=== PATIENT | male | born 1950 | race Caucasian/White ===

== ENCOUNTER 2021-08-11 20:28 | Inpatient (IN) ==
[2021-08-11] MEDS ORDERED: ONDANSETRON INJ 2 MG/ML 2 ML VIAL IV STA (20:54)
[2021-08-11] MEDS ORDERED: LORazepam 2 MG/1 ML VIAL IV STA (20:54)
[2021-08-11] MEDS ORDERED: ONDANSETRON INJ 2 MG/ML 2 ML VIAL ONE (20:54)
[2021-08-11] MEDS ORDERED: SODIUM CHLORIDE 0.9% 1000ML 1,000 ML IV ONE (20:54)
[2021-08-11] MEDS ORDERED: LORazepam 2 MG/1 ML VIAL ONE (20:54)
--- NOTE | 2021-08-11 21:00 | Emergency Department Note ---
Impression & Plan Acute confusion, Leukocytosis, Vertebral artery obstruction ED Provider Note NAME: CHETNA DORMAN AGE: 71 SEX: M : 1950 ARRIVES VIA: Walk-In INFORMANT: [Patient][] ED PROVIDER(S): [Raman Lund MD] Patient first seen by me at 2049 CHIEF COMPLAINT: Confusion HISTORY OF PRESENT ILLNESS: The patient is a 71-year-old male who presents to the ER with confusion that has been present for about an hour and a half. The patient had an episode yesterday that his thought might have been panic. He was sweaty with a high heart rate and she thought he may just be anxious. His [id number] just recently . Today, he had 2 similar episodes as yesterday but also had some nausea. In the last hour and a half, he has become confused and a bit agitated. He began vomiting. The patient did not know his son, he did not remember that his [id number] had passed recently. The patient keeps asking the same questions over and over. As per the , there was no one-sided weakness, no speech slur or facial droop. She believes her has otherwise been in baseline health. No respiratory complaints. No recent sick contacts. REVIEW OF SYSTEMS: See HPI for pertinent positives and negatives. A total of ten systems were reviewed and were otherwise negative. PMHx/PSHx: See Below SOCIAL HISTORY: See Below. PHYSICAL EXAM: GENERAL: Patient is in mild distress, seems anxious. HEENT: No acute trauma, normocephalic atraumatic, mucous membranes moist, no nasal congestion, no scleral icterus. Pupils equal and reactive to light. NECK: No stridor, no adenopathy, no meningismus, trachea is midline. LUNGS: Clear to auscultation bilaterally, no wheeze, no rhonchi, breath sounds equal. HEART: Mildly tachycardic, regular rhythm, no murmurs. ABDOMEN: Soft, nontender, bowel sounds positive, no peritonitis. EXTREMITIES: No cyanosis or edema, full range of motion of all the joints without pain or difficulty, no signs for acute trauma. NEUROLOGIC: Patient is confused. There are no extremity deficits , there is no extremity drift. No speech slur or facial droop. Patient continues asking the same questions over and over again. SKIN: No rash, no jaundice, no diaphoresis. DIFFERENTIAL DIAGNOSIS: Infection, dehydration, UTI, transient global amnesia, anxiety, panic, metabolic abnormality, hypo/hyperglycemia, electrolyte disturbance, anemia, hypoxia, cardiac sources, intracerebral event, toxicologic issues, stroke, TIA, as well as other pathologies. EMERGENCY DEPARTMENT COURSE/PROCEDURES: ECG: Indication was weakness and confusion. The ECG shows a normal sinus rhythm with a rate of 91. There is some nonspecific ST change seen laterally and across the anterior leads. There is no ST elevation, no PVCs. QTC is 460. Compared to an ECG from 29 April 2021, the nonspecific changes seen across the anterior lateral leads are new. Continuous Cardiac Monitoring: An order was placed for continuous cardiac monitoring. The monitor shows a rate of 81 with normal sinus rhythm. Critical Care Note: I have personally spent 51 minutes of critical care time in the direct management of this patient. This includes bedside care, interpretation of diagnostic studies, and testing, discussion with consultants, patient, and family members, and other required patient management activities. This 51 minutes is in excess of all separately billable procedures. Lumbar puncture: This procedure was performed by me. Risks and benefits of the procedure were discussed. Patient was placed seated on the stretcher. Lumbar landmarks were identified. Betadine was used for prep. Sterile drapes were applied. Using sterile technique, lidocaine was used to anesthetize the lumbar area. Using sterile technique, I was able to access the spinal canal with a 22- gauge spinal needle. There were no complications. Fluid was collected for analysis and sent to the lab. Patient tolerated the procedure well. MEDICAL DECISION MAKING: There is a mild leukocytosis which could be consistent with infection or the stress of his presentation and vomiting. There is a normal hemoglobin. There is a normal platelet count. No significant electrolyte abnormality in need of emergent correction. No concerning liver enzyme elevation. Ammonia level was not elevated. ECG showed a normal sinus rhythm, no obvious ischemia. Cardiac enzyme testing x1 is not consistent with acute cardiac injury. The patient appeared to be in a euthyroid state. Urinalysis did not show infection. Spinal fluid results did not show evidence for meningitis. His CSF bio fire test is cu rrently pending. Urine tox was positive for marijuana. Alcohol level was undetectable. COVID test returned negative. Chest x-ray did not show CHF or pneumonia. Brain CT showed no acute bleed or mass-effect. CTA of the head did not show any aneurysm or stenosis. 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 On exam, the patient was confused, no speech slur, no extremity deficit. No facial droop. The patient was not febrile, there was no meningismus. The patient received IV saline, 1 L. He was given IV Zofran and IV Ativan. When the findings of the vertebral occlusion were noted, I did call a stroke alert and was able to talk to the stroke neurologist from [place]. TNKase is not indicated as his symptom started yesterday. TNKase was not indicated as his deficit is minimal. At this point, it is uncertain if this is a stroke, a seizure or transient global amnesia. The patient seems to be doing a bit better although still remains at times confused. He is having issues with his memory. I did speak with the patient about my findings, I spoke with his . I did speak with the shelter case manager. The on-call hospitalist has been consulted. At the advice of the stroke neurologist, the patient was given oral aspirin, 325 mg. Patient requires further work-up and care as an inpatient. Of note, I was asked by the hospitalist to perform a lumbar puncture. I spoke to the patient and his about this procedure, they did consent and they understand the risks, the benefits and the reason for the procedure. As noted above, the lumbar puncture was performed without difficulty, the preliminary results do not show evidence for meningitis. Past Med/Surg History Medical History Hyperlipidemia Hypertension Non-insulin dependent diabetes mellitus Social History Smoking Status: Never smoker Preferred Language: Bulgarian Feels Safe at Home: Yes Allergies Allergies Allergy/AdvReac Type Severity Reaction Status Date / Time No Known Allergies Allergy Verified 08/11/21 21:23 Home Meds Home Medications Medication Instructions Recorded Confirmed atorvastatin 40 mg tablet 20 mg PO HS 06/07/19 08/11/21 losartan 100 1 tab PO QAM 06/07/19 08/11/21 mg-hydrochlorothiazide 25 mg tablet metformin 500 mg tablet,extended 500 mg PO QAM 06/07/19 08/11/21 release 24 hr pantoprazole 40 mg tablet,delayed 40 mg PO DAILYBB 06/07/19 08/11/21 release sildenafil 100 mg tablet 100 mg PO DAILY PRN 06/07/19 08/11/21 amlodipine 5 mg tablet 5 mg PO DAILY 08/11/21 08/11/21 metoprolol tartrate 25 mg tablet 12.5 mg PO BID 08/11/21 08/11/21 Results & Data (ED) Vital Signs Vital Signs - 24 hr 08/11/21 20:39 08/11/21 20:56 08/11/21 22:09 Temperature 36.3 C L Temperature Source Temporal Artery Scan Pulse Rate 81 78 Pulse Rate from SpO2 Sensor 78 Respiratory Rate 16 21 Respiratory Effort / Characteristics Non-Labored Spontaneous Respiratory Depth Normal Blood Pressure 173/95 H Blood Pressure Mean 121 Blood Pressure Position Standing Pulse Oximetry 99 98 99 Oxygen Delivery Method Room Air Room Air Sepsis Recent Fever Within 48 Hours No Sepsis New/Unexplained Change in Mental Status No Sepsis Action Taken by Nursing No Action Required 08/11/21 22:10 08/11/21 22:20 08/11/21 22:22 Temperature Temperature Source Pulse Rate 89 81 77 Pulse Rate from SpO2 Sensor 88 80 70 Respiratory Rate 28 H 20 17 Respiratory Effort / Characteristics Respiratory Depth Blood Pressure 142/82 H Blood Pressure Mean 102 Blood Pressure Position Pulse Oximetry 100 99 97 Oxygen Delivery Method Sepsis Recent Fever Within 48 Hours Sepsis New/Unexplained Change in Mental Status Sepsis Action Taken by Nursing 08/11/21 22:30 08/11/21 22:40 08/11/21 22:50 Temperature Temperature Source Pulse Rate 82 81 77 Pulse Rate from SpO2 Sensor 82 81 78 Respiratory Rate 24 18 18 Respiratory Effort / Characteristics Respiratory Depth Blood Pressure 148/81 H Blood Pressure Mean 103 Blood Pressure Position Pulse Oximetry 97 98 97 Oxygen Delivery Method Sepsis Recent Fever Within 48 Hours Sepsis New/Unexplained Change in Mental Status Sepsis Action Taken by Nursing 08/11/21 23:00 08/11/21 23:10 Temperature Temperature Source Pulse Rate 80 78 Pulse Rate from SpO2 Sensor 81 78 Respiratory Rate 21 20 Respiratory Effort / Characteristics Non-Labored Respiratory Depth Normal Blood Pressure 154/82 H Blood Pressure Mean 106 Blood Pressure Position Pulse Oximetry 98 92 Oxygen Delivery Method Room Air Sepsis Recent Fever Within 48 Hours Sepsis New/Unexplained Change in Mental Status Sepsis Action Taken by Snf Medications Current Medication List: was personally reviewed by me Laboratory Data Attestation: I reviewed the patient's lab results. Result diagrams: 08/11/21 20:55 08/11/21 20:55 Lab Results 08/11/21 08/11/21 08/11/21 Range/Units 20:48 20:55 20:55 WBC 13.10 H (4.8-10.8) K/uL RBC 5.57 (4.7-6.1) M/uL Hgb 16.3 (14.0-18.0) g/dL POC Hgb (14.0-18.0) g/dl Hct 45.3 (42-52) % POC Hct (42-52) % MCV 81.3 (80-100) fL MCH 29.3 (25-34) pg MCHC 36.0 (32-36) g/dL RDW Std Deviation 36.3 L (36.4-46.3) fL RDW Coeff of Alyson 12.3 (11.5-14.5) % Plt Count 315 (130-400) K/uL MPV 11.0 H (7.4-10.4) fL Immature Gran % (Auto) 0.2 % Neut % (Auto) 83.8 % Lymph % (Auto) 12.1 % Logan % (Auto) 3.7 % Eos % (Auto) 0.1 % Baso % (Auto) 0.1 % Neut # (Auto) 10.98 H (1.4-6.5) K/uL Lymph # (Auto) 1.58 (1.2-3.4) K/uL Logan # (Auto) 0.49 (0.11-0.59) K/uL Eos # (Auto) 0.01 (0-0.5) K/uL Baso # (Auto) 0.01 (0-0.2) K/uL Immature Gran # (Auto) 0.03 H (0.00-0.02) K/uL POC Sodium (135-144) mmol/L Sodium 135 L (136-145) mmol/L POC Potassium (3.3-5.0) mmol/L Potassium 3.9 (3.5-5.1) mmol/L POC Chloride (101-112) mmol/L Chloride 100 (98-107) mmol/L Carbon Dioxide 21 (21-32) mmol/L POC Total CO2 (24-31) mmol/L Anion Gap 14 H (3-11) POC Anion Gap (16-25) mmol/L POC BUN (7-18) mg/dl BUN 23 (6-23) mg/dl Creatinine 1.19 (0.6-1.4) mg/dl POC Creatinine (0.6-1.3) mg/dl Est Cr Clr Drug Dosing 61.4 ml/min Est GFR ( Amer) 70.8 ml/min Est GFR (Non-Af Amer) 61.1 ml/min BUN/Creatinine Ratio 19.3 (10-20) Glucose 185 H (70-99(Fasting)) mg/dl POC Glucose 201 H (70-99) mg/dl POC Glucose (other) (70-99) mg/dl Calcium 10.3 H (8.5-10.1) mg/dl POC Ioniz Calcium Phillip (1.12-1.32) mmol/l Magnesium 1.9 (1.7-2.4) mg/dl Total Bilirubin 1.4 H (0.2-1.0) mg/dl AST 20 (13-39) U/L ALT 32 (7-52) U/L Alkaline Phosphatase 75 (34-104) U/L Ammonia (18-72) umol/L Troponin I High Sens 11.3 (0-20) pg/ml Total Protein 8.5 H (6.0-8.3) gm/dl Albumin 5.0 (3.4-5.0) gm/dl Globulin 3.5 (2.5-4.0) gm/dl Albumin/Globulin Ratio 1.4 (0.9-2) TSH (0.300-4.500) uIu/ml Urine Color Urine Appearance (Clear) Urine pH (4.5-7.5) Ur Specific [employer] (1.000-1.030) Urine Protein (Negative) Urine Glucose (UA) (Negative) Urine Ketones (Negative) Urine Blood (Negative) Urine Nitrite (Negative) Urine Bilirubin (Negative) Urine Urobilinogen (Negative) Ur Leukocyte Esterase (Negative) Urine Opiates Screen (Neg) Ur Methadone, Qual (Neg) Urine Barbiturates (Neg) Ur Phencyclidine (PCP) (Neg) U Amphetamin/Meth Scrn (Neg) MDMA (Ecstasy) Screen (Neg) U Benzodiazepines Scrn (Neg) Ur Cocaine Metabolite (Neg) U Marijuana (THC) Screen (Neg) Ethyl Alcohol mg/dL (<10.0) mg/dl Lyme Disease IgG Ab (Negative) Lyme Disease IgM Ab (Negative) SARS-CoV-2, RNA, NAAT (NEGATIVE) 08/11/21 08/11/21 08/11/21 Range/Units 20:55 20:55 20:58 WBC (4.8-10.8) K/uL RBC (4.7-6.1) M/uL Hgb (14.0-18.0) g/dL POC Hgb 16.0 (14.0-18.0) g/dl Hct (42-52) % POC Hct 47 (42-52) % MCV (80-100) fL MCH (25-34) pg MCHC (32-36) g/dL RDW Std Deviation (36.4-46.3) fL RDW Coeff of Alyson (11.5-14.5) % Plt Count (130-400) K/uL MPV (7.4-10.4) fL Immature Gran % (Auto) % Neut % (Auto) % Lymph % (Auto) % Logan % (Auto) % Eos % (Auto) % Baso % (Auto) % Neut # (Auto) (1.4-6.5) K/uL Lymph # (Auto) (1.2-3.4) K/uL Logan # (Auto) (0.11-0.59) K/uL Eos # (Auto) (0-0.5) K/uL Baso # (Auto) (0-0.2) K/uL Immature Gran # (Auto) (0.00-0.02) K/uL POC Sodium 137 (135-144) mmol/L Sodium (136-145) mmol/L POC Potassium 3.9 (3.3-5.0) mmol/L Potassium (3.5-5.1) mmol/L POC Chloride 101 (101-112) mmol/L Chloride (98-107) mmol/L Carbon Dioxide (21-32) mmol/L POC Total CO2 21 L (24-31) mmol/L Anion Gap (3-11) POC Anion Gap 20.0 (16-25) mmol/L POC BUN 21 H (7-18) mg/dl BUN (6-23) mg/dl Creatinine (0.6-1.4) mg/dl POC Creatinine 1.1 (0.6-1.3) mg/dl Est Cr Clr Drug Dosing ml/min Est GFR ( Amer) ml/min Est GFR (Non-Af Amer) ml/min BUN/Creatinine Ratio (10-20) Glucose (70-99(Fasting)) mg/dl POC Glucose (70-99) mg/dl POC Glucose (other) 195 H (70-99) mg/dl Calcium (8.5-10.1) mg/dl POC Ioniz Calcium Phillip 1.21 (1.12-1.32) mmol/l Magnesium (1.7-2.4) mg/dl Total Bilirubin (0.2-1.0) mg/dl AST (13-39) U/L ALT (7-52) U/L Alkaline Phosphatase (34-104) U/L Ammonia (18-72) umol/L Troponin I High Sens (0-20) pg/ml Total Protein (6.0-8.3) gm/dl Albumin (3.4-5.0) gm/dl Globulin (2.5-4.0) gm/dl Albumin/Globulin Ratio (0.9-2) TSH 3.083 (0.300-4.500) uIu/ml Urine Color Urine Appearance (Clear) Urine pH (4.5-7.5) Ur Specific [employer] (1.000-1.030) Urine Protein (Negative) Urine Glucose (UA) (Negative) Urine Ketones (Negative) Urine Blood (Negative) Urine Nitrite (Negative) Urine Bilirubin (Negative) Urine Urobilinogen (Negative) Ur Leukocyte Esterase (Negative) Urine Opiates Screen (Neg) Ur Methadone, Qual (Neg) Urine Barbiturates (Neg) Ur Phencyclidine (PCP) (Neg) U Amphetamin/Meth Scrn (Neg) MDMA (Ecstasy) Screen (Neg) U Benzodiazepines Scrn (Neg) Ur Cocaine Metabolite (Neg) U Marijuana (THC) Screen (Neg) Ethyl Alcohol mg/dL (<10.0) mg/dl Lyme Disease IgG Ab Negative (Negative) Lyme Disease IgM Ab Equivocal A (Negative) SARS-CoV-2, RNA, NAAT (NEGATIVE) 06/04/0308/11/21 08/11/21 Range/Units 21:35 21:35 22:27 WBC (4.8-10.8) K/uL RBC (4.7-6.1) M/uL Hgb (14.0-18.0) g/dL POC Hgb (14.0-18.0) g/dl Hct (42-52) % POC Hct (42-52) % MCV (80-100) fL MCH (25-34) pg MCHC (32-36) g/dL RDW Std Deviation (36.4-46.3) fL RDW Coeff of Alyson (11.5-14.5) % Plt Count (130-400) K/uL MPV (7.4-10.4) fL Immature Gran % (Auto) % Neut % (Auto) % Lymph % (Auto) % Logan % (Auto) % Eos % (Auto) % Baso % (Auto) % Neut # (Auto) (1.4-6.5) K/uL Lymph # (Auto) (1.2-3.4) K/uL Logan # (Auto) (0.11-0.59) K/uL Eos # (Auto) (0-0.5) K/uL Baso # (Auto) (0-0.2) K/uL Immature Gran # (Auto) (0.00-0.02) K/uL POC Sodium (135-144) mmol/L Sodium (136-145) mmol/L POC Potassium (3.3-5.0) mmol/L Potassium (3.5-5.1) mmol/L POC Chloride (101-112) mmol/L Chloride (98-107) mmol/L Carbon Dioxide (21-32) mmol/L POC Total CO2 (24-31) mmol/L Anion Gap (3-11) POC Anion Gap (16-25) mmol/L POC BUN (7-18) mg/dl BUN (6-23) mg/dl Creatinine (0.6-1.4) mg/dl POC Creatinine (0.6-1.3) mg/dl Est Cr Clr Drug Dosing ml/min Est GFR ( Amer) ml/min Est GFR (Non-Af Amer) ml/min BUN/Creatinine Ratio (10-20) Glucose (70-99(Fasting)) mg/dl POC Glucose (70-99) mg/dl POC Glucose (other) (70-99) mg/dl Calcium (8.5-10.1) mg/dl POC Ioniz Calcium Phillip (1.12-1.32) mmol/l Magnesium (1.7-2.4) mg/dl Total Bilirubin (0.2-1.0) mg/dl AST (13-39) U/L ALT (7-52) U/L Alkaline Phosphatase (34-104) U/L Ammonia 28.0 (18-72) umol/L Troponin I High Sens (0-20) pg/ml Total Protein (6.0-8.3) gm/dl Albumin (3.4-5.0) gm/dl Globulin (2.5-4.0) gm/dl Albumin/Globulin Ratio (0.9-2) TSH (0.300-4.500) uIu/ml Urine Color Yellow Urine Appearance Clear (Clear) Urine pH 5.5 (4.5-7.5) Ur Specific [employer] > 1.045 H (1.000-1.030) Urine Protein Negative (Negative) Urine Glucose (UA) Negative (Negative) Urine Ketones Trace H (Negative) Urine Blood Negative (Negative) Urine Nitrite Negative (Negative) Urine Bilirubin Negative (Negative) Urine Urobilinogen Negative (Negative) Ur Leukocyte Esterase Negative (Negative) Urine Opiates Screen (Neg) Ur Methadone, Qual (Neg) Urine Barbiturates (Neg) Ur Phencyclidine (PCP) (Neg) U Amphetamin/Meth Scrn (Neg) MDMA (Ecstasy) Screen (Neg) U Benzodiazepines Scrn (Neg) Ur Cocaine Metabolite (Neg) U Marijuana (THC) Screen (Neg) Ethyl Alcohol mg/dL < 10.0 (<10.0) mg/dl Lyme Disease IgG Ab (Negative) Lyme Disease IgM Ab (Negative) SARS-CoV-2, RNA, NAAT (NEGATIVE) 08/11/21 08/11/21 Range/Units 22:27 22:45 WBC (4.8-10.8) K/uL RBC (4.7-6.1) M/uL Hgb (14.0-18.0) g/dL POC Hgb (14.0-18.0) g/dl Hct (42-52) % POC Hct (42-52) % MCV (80-100) fL MCH (25-34) pg MCHC (32-36) g/dL RDW Std Deviation (36.4-46.3) fL RDW Coeff of Alyson (11.5-14.5) % Plt Count (130-400) K/uL MPV (7.4-10.4) fL Immature Gran % (Auto) % Neut % (Auto) % Lymph % (Auto) % Logan % (Auto) % Eos % (Auto) % Baso % (Auto) % Neut # (Auto) (1.4-6.5) K/uL Lymph # (Auto) (1.2-3.4) K/uL Logan # (Auto) (0.11-0.59) K/uL Eos # (Auto) (0-0.5) K/uL Baso # (Auto) (0-0.2) K/uL Immature Gran # (Auto) (0.00-0.02) K/uL POC Sodium (135-144) mmol/L Sodium (136-145) mmol/L POC Potassium (3.3-5.0) mmol/L Potassium (3.5-5.1) mmol/L POC Chloride (101-112) mmol/L Chloride (98-107) mmol/L Carbon Dioxide (21-32) mmol/L POC Total CO2 (24-31) mmol/L Anion Gap (3-11) POC Anion Gap (16-25) mmol/L POC BUN (7-18) mg/dl BUN (6-23) mg/dl Creatinine (0.6-1.4) mg/dl POC Creatinine (0.6-1.3) mg/dl Est Cr Clr Drug Dosing ml/min Est GFR ( Amer) ml/min Est GFR (Non-Af Amer) ml/min BUN/Creatinine Ratio (10-20) Glucose (70-99(Fasting)) mg/dl POC Glucose (70-99) mg/dl POC Glucose (other) (70-99) mg/dl Calcium (8.5-10.1) mg/dl POC Ioniz Calcium Phillip (1.12-1.32) mmol/l Magnesium (1.7-2.4) mg/dl Total Bilirubin (0.2-1.0) mg/dl AST (13-39) U/L ALT (7-52) U/L Alkaline Phosphatase (34-104) U/L Ammonia (18-72) umol/L Troponin I High Sens (0-20) pg/ml Total Protein (6.0-8.3) gm/dl Albumin (3.4-5.0) gm/dl Globulin (2.5-4.0) gm/dl Albumin/Globulin Ratio (0.9-2) TSH (0.300-4.500) uIu/ml Urine Color Urine Appearance (Clear) Urine pH (4.5-7.5) Ur Specific [employer] (1.000-1.030) Urine Protein (Negative) Urine Glucose (UA) (Negative) Urine Ketones (Negative) Urine Blood (Negative) Urine Nitrite (Negative) Urine Bilirubin (Negative) Urine Urobilinogen (Negative) Ur Leukocyte Esterase (Negative) Urine Opiates Screen Neg (Neg) Ur Methadone, Qual Neg (Neg) Urine Barbiturates Neg (Neg) Ur Phencyclidine (PCP) Neg (Neg) U Amphetamin/Meth Scrn Neg (Neg) MDMA (Ecstasy) Screen Neg (Neg) U Benzodiazepines Scrn Neg (Neg) Ur Cocaine Metabolite Neg (Neg) U Marijuana (THC) Screen Pos H (Neg) Ethyl Alcohol mg/dL (<10.0) mg/dl Lyme Disease IgG Ab (Negative) Lyme Disease IgM Ab (Negative) SARS-CoV-2, RNA, NAAT NEGATIVE (NEGATIVE) Administered Medications Lactated Ringer's (Lr) 1,000 mls @ 80 mls/hr IV .[id number] JORGE Stop: 09/10/21 23:54 Last Admin: 08/12/21 00:10 Dose: 80 mls/hr Documented by: [id number] Insulin Aspart (Insulin Aspart Per Unit) 0 units SC Q6 JORGE Stop: 09/11/21 00:59 Last Admin: 08/12/21 01:38 Dose: 1 units Documented by: [id number] Cosigned by: [id number] Discontinued Medications Aspirin (Aspirin Chew 324 Mg) 324 mg PO NOW STA Stop: 08/11/21 22:14 Last Admin: 08/11/21 22:53 Dose: 324 mg Documented by: [id number] Sodium Chloride (Nss 1000ml) 1,000 mls @ 999 mls/hr IV .[id number] ONE Stop: 08/11/21 21:54 Last Infusion: 08/11/21 22:47 Dose: 0 mls/hr Documented by: [id number] Admin: 08/11/21 21:45 Dose: 999 mls/hr Documented by: [id number] Ioversol (Optiray 320 125ml) 121 ml IV ONCE ONE Stop: 08/11/21 21:09 Last Admin: 08/11/21 21:09 Dose: 121 ml Documented by: [id number] Lidocaine HCl (Xylocaine 1%/Sod Bicarb 20 Ml Vial) 20 ml INFIL NOW ONE Stop: 08/12/21 00:13 Last Admin: 08/12/21 00:22 Dose: 20 ml Documented by: [id number] Lorazepam (Lorazepam 2 Mg/1 Ml Vial) Confirm Administered Dose 2 mg .ROUTE .STK- MED ONE Stop: 08/11/21 20:55 Last Admin: 08/11/21 21:47 Dose: Not Given Documented by: [id number] Lorazepam (Lorazepam 2 Mg/1 Ml Vial) 0.5 mg IV NOW STA; Protocol Stop: 08/11/21 20:55 Last Admin: 08/11/21 21:45 Dose: 0.5 mg Documented by: [id number] Ondansetron HCl (Ondansetron Inj 2 Mg/Ml 2 Ml Vial) Confirm Administered Dose 4 mg .ROUTE .STK-MED ONE Stop: 08/11/21 20:55 Last Admin: 08/11/21 21:45 Dose: 4 mg Documented by: [id number] Ondansetron HCl (Ondansetron Inj 2 Mg/Ml 2 Ml Vial) 4 mg IV NOW STA Stop: 08/11/21 20:55 Last Admin: 08/11/21 21:47 Dose: Not Given Documented by: [id number] Imaging Data Radiologist's Impression: Brain CT without contrast: There is no evidence for acute intracranial process. Mild mucosal thickening of the ethmoid air cells. CTA of the head: Severe attenuation of the proximal intracranial left vertebral artery. Right vertebral artery, basilar artery and bilateral fence erector supervisor are adequate and patent. Intracranial ICAs are adequate and patent. MCAs are patent. 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 Right vertebral artery is normal. Carotid arteries are normal. Discharge Plan Visit Data Chief Complaint: Confusion Stated Complaint: CONFUSION ED Provider: Raman Lund Discharge Problem: Acute confusion, Leukocytosis, Vertebral artery obstruction Patient Disposition: Admitted As Inpatient Condition: Fair
[2021-08-11] MEDS ORDERED: OPTIRAY 320 125ml IV ONE (21:08)
[2021-08-11 21:11] LABS: iSTAT Creatinine 1.1 mg/dl (0.6-1.3); iSTAT Ionized Calcium 1.21 mmol/l (1.12-1.32); iSTAT Potassium 3.9 mmol/L (3.3-5.0)
[2021-08-11 21:23] LABS: Basophils # (auto) 0.01 K/uL (0-0.2); Basophils % (auto) 0.1 %; Eosinophils # (auto) 0.01 K/uL (0-0.5); Eosinophils % (auto) 0.1 %; Hematocrit (blood only) 45.3 % (42-52); Hemoglobin 16.3 g/dL (14.0-18.0); Immature Granulocytes # (auto) 0.03 K/uL (0.00-0.02); Immature Granulocytes % (auto) 0.2 %; Lymphocytes # (auto) 1.58 K/uL (1.2-3.4); Lymphocytes % (auto) 12.1 %; Mean Corpuscular Hemoglobin 29.3 pg (25-34); Mean Corpuscular Volume 81.3 fL (80-100); Monocytes # (auto) 0.49 K/uL (0.11-0.59); Monocytes % (auto) 3.7 %; Neutrophils # (auto) 10.98 K/uL (1.4-6.5); Neutrophils % (auto) 83.8 %; Platelet Count 315 K/uL (130-400); RDW Coefficient of Variation 12.3 % (11.5-14.5); RDW Standard Deviation 36.3 fL (36.4-46.3); Red Blood Count 5.57 M/uL (4.7-6.1)
[2021-08-11 21:38] LABS: Troponin I High Sensitivity 11.3 pg/ml (0-20)
[2021-08-11 21:59] LABS: Albumin Globulin Ratio 1.4 (0.9-2); BUN Creatinine Ratio 19.3 (10-20); Bilirubin,Total 1.4 mg/dl (0.2-1.0); Calcium 10.3 mg/dl (8.5-10.1); Creatinine Clr Calc Pharmacy 61.4 ml/min; Est GFR (African American) 70.8 ml/min; Est GFR (Non-African American) 61.1 ml/min; Globulin 3.5 gm/dl (2.5-4.0); Magnesium 1.9 mg/dl (1.7-2.4); Potassium 3.9 mmol/L (3.5-5.1); Total Protein 8.5 gm/dl (6.0-8.3)
[2021-08-11] MEDS ORDERED: ASPIRIN CHEW 324 MG PO STA (22:13)
[2021-08-11 22:40] LABS: Appearance Urine Clear (Clear); Bilirubin Urine Negative (Negative); Blood Urine Negative (Negative); Color Urine Yellow; Glucose Urine UA Negative (Negative); Ketones Urine Trace (Negative); Leukocyte Esterase Urine Negative (Negative); Nitrite Urine Negative (Negative); Protein Urine Negative (Negative); Specific Gravity Urine > 1.045 (1.000-1.030); Urobilinogen Urine Negative (Negative); pH Urine 5.5 (4.5-7.5)
--- NOTE | 2021-08-11 23:10 | History & Physical Report ---
Date of Service August 11, 2021 Assessment & Plan (1) Acute confusion: Plan: Parker Gorman is a 71yo male with PMHx significant for HTN, HLD, T2DM and GERD who presented to [facility] ED on 08/11 for acute-onset confusion and amnesia for the last several hours, with reported fever/chills/weakness/malaise for several days. Acute Confusion/Amnesia Unclear etiology at this point in time. When considering the recent episodes of anxiety/palpitations/diaphoresis in the context of a life stressor (loss of ncajoc-jx-qoh), with acute-onset amnesia earlier this evening, transient global amnesia is certainly on the differential. However per CTA head/neck here, the patient has occlusion of left vertebral artery which makes acute CVA a possibility as well. Additionally, there is concern for PROPERTY INSURANCE AGENT infection given recent fever/chills/weakness/malaise as well as mild leukocytosis and positive jolt accentuation test on exam. - CT head and CTA head/neck without evidence for CVA - ordered MRI w/o contrast for further evaluation - ordered TTE - ordered EEG as well per [facility] Telestroke recs - consulted Neurology - appreciate recs - s/p Aspirin 324mg x1 in ED - continue with 81mg PO daily started in AM - ordered lipid profile - will plan to increase home Atorvastatin to 40mg vs 80mg pending results of this - permissive HTN given concern for CVA - will hold home anti-hypertensives for now - NPO pending dysphagia screen - infectious work-up as mentioned below Fever; Meningismus; Leukocytosis Fever/chills and generalized weakness/malaise for several days. Thankfully afebrile and hemodynamically stable in the ED although with meningismus (+ jolt accentuation) and leukocytosis with neutrophilic predominance and left shift. Given acute amnesia/confusion, this is concerning for PROPERTY INSURANCE AGENT infection. - Lyme IgG negative but IgM equivocal - Western blot pending - blood cx taken - pending - LP performed by ED physician, with reported clear CSF - will defer on steroids and abx until LP cell counts result, as patient is currently afebrile, hemodynamically stable, and appears non-toxic - s/p 1L NSS bolus - will continue with light IV hydration: LR @80cc/hr - trend CBC and CMP in AM Chronic Medical Problems: HTN: hold home Amlodipine, Losartan-HCTZ, Metoprolol as stated above T2DM: unknown previous A1c, will order one now. Hold home Metformin, SSI while hospitalized GERD: Pantoprazole PTSD: chronic, no medications. Recommend therapy as outpatient - per PCP FEN/GI: NPO, LR @80cc/hr DVT Prophylaxis: Lovenox Code Status: full code Disposition: med/tele (2) Vertebral artery obstruction: (3) Leukocytosis: (4) Hypertension: (5) Hyperlipidemia: (6) Non-insulin dependent diabetes mellitus: History of Present Illness Chief Complaint: confusion Primary Care Provider: NO PCP Parker Gorman is a 71yo male with PMHx significant for HTN, HLD, T2DM and GERD who presented to [facility] ED on 08/11 for acute-onset confusion and amnesia for the last several hours. The patient's history has been obtained with assistance of the patient's , as the patient reports being "fuzzy" on all events that have occurred in the past week. Per the patient and his 's testimony, the patient had an anxiety episode yesterday that thought may have been a panic attack; he became sweaty with palpitations, which resolved in less than an hour. Of note the patient's rzdpja-zc-tgc had recently . Today the patient had two similar episodes except with associated nausea and with amnesia - he reported that he did not know his son and that he did not remember that his znybzp-gd-pht had recently . Per patient and his , he did not have speech deficits, facial droop or focal weakness/numbness/tingling. Patient and his do report that he has had intermittent fever/chills, unmeasured, for the last several days, with associated generalized weakness and lethargy. He spends a lot of time in his garden and reports that he recently had two bug bites on his arms and pulled out the "pincer" from one of the bite sites earlier today, although unsure if this was a tick. Patient has otherwise been at baseline health status without cough, runny nose, chest pain, SOB, N/V, abdominal pain, diarrhea or rash. Patient reports that he has been diagnosed with PTSD in the past although never on medications, due to his service in [place]. Reports that he regularly had hypersensitivity to certain sounds and smells ~30 years ago, with associated palpitations/sweating/anxiety, but this went away. Then he started having the same episodes again ~3-4 weeks ago which lasted for several days and went away. Unlike above symptoms, these symptoms did not coincide with a life stressor or illness. Patient is a never smoker, does not drink. He does use medical marijuana for peripheral neuropathy but no other drugs. In the ED the patient was hypertensive to 173/95 but otherwise hemodynamically stable on room air. Labs significant for WBC 13.1 (neutrophilic predominance and mild L shift), HCO3 21, AG 14, no ALEXEI. BSG was 201. Tbili 1.4. TSH 3.083. UA concentrated with trace ketones. UDS negative and BAL negative. CT head without acute process. 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 Stroke alert was called and [facility] Telestroke Neurologist recommended patient be given full Aspirin, which he received in the ED. Patient also received 1L NSS bolus, Zofran x1, and Ativan 0.5mg IV x1. Allergies Allergy/AdvReac Type Severity Reaction Status Date / Time No Known Allergies Allergy Verified 08/11/21 21:23 Home Medications Medication Instructions Recorded Confirmed Type atorvastatin 40 mg tablet 20 mg PO HS 06/07/19 08/11/21 History losartan 100 1 tab PO QAM 06/07/19 08/11/21 History mg-hydrochlorothiazide 25 mg tablet metformin 500 mg tablet,extended 500 mg PO QAM 06/07/19 08/11/21 History release 24 hr pantoprazole 40 mg tablet,delayed 40 mg PO DAILYBB 06/07/19 08/11/21 History release sildenafil 100 mg tablet 100 mg PO DAILY PRN 06/07/19 08/11/21 History amlodipine 5 mg tablet 5 mg PO DAILY 08/11/21 08/11/21 History metoprolol tartrate 25 mg tablet 12.5 mg PO BID 08/11/21 08/11/21 History aspirin 81 mg tablet,delayed 81 mg PO DAILY #14 tab 08/12/21 Rx release lorazepam 0.5 mg tablet 0.5 mg PO DAILY PRN #5 tab 08/12/21 Rx Past Med/Surg History Medical History (Updated 08/12/21 @ 09:32 by Arsenio Bates MD) Hyperlipidemia Hypertension Non-insulin dependent diabetes mellitus Social History Smoking Status: Never smoker Hx Alcohol Use: No Hx Substance Use: Yes Preferred Language: Ukrainian Communication Ability: Effective Full Time Paramedic Required: No Beliefs That Will Affect Care: None Current Living Situation: Spouse and Family Current Living Situation Comment: lives at home and son Feels Safe at Home: Yes Assistive Devices: None Review of Systems Review of Systems: All systems reviewed & are unremarkable except as noted in HPI & below Physical Exam Physical Exam: General: A&Ox3. NAD. Cooperative. HEENT: Atraumatic, normocephalic. Pulm: CTAB A&P. -wheezes, -rales, -rhonchi. Symmetrical chest rise. No increase work of breathing. No respiratory distress. Cardiac: RRR, -mrg. Radial pulses intact and symmetrical. Abdominal: soft, non-tender, non-distended, BS x 4 Neurologic: patellar DTR's 2+ bilat, sensation intact and PERRL, EOMI, accommodation nl, no face palsy, no dysarthria normal touch/pain/proprioception Speech / Cognition: normal speech Motor/Sensory: no tremor Gait: no ataxic gait Coordination: normal tkodvh-qt-nkre test and normal cnvo-tn-yacg test positive jolt accentuation testing - patient reports worsening headache and neck pain. Results & Data Results & Data ([facility]) Vital Signs (Past 12 Hours) Vital Signs Temp Pulse Resp BP Pulse Ox 08/11/21 20:56 98 08/11/21 20:39 36.3 C L 81 16 173/95 H 99 Supervising Physician Co-Signing Physician Notes Patient seen and examined, chart reviewed, case discussed with Dr. Rhodes and I agree with the assessment and plan as above. Patient with acute confusion/amnesia possibly ongoing last 2-3 weeks Exam is largely unremarkable - no focal findings Jolt accentuation test POSITIVE as performed by Dr. Rhodes Labs and images reviewed CSF with no evidence of infectious process Vertebral artery occlusion Assessment/Plan - AMS/Confusion - ?TGA, CVA, doubt infection given normal CSF -Check MRI, OLAMIDE -Neurology assessment -Remainder as above Resident Activity Tracking Resident Involvement: Resident Care Provided Care Provided: Adult Hospital Medicine (1) Vertebral artery obstruction Laterality: left Qualified Code(s): I65.02 - Occlusion and stenosis of left vertebral artery (2) Leukocytosis Leukocytosis type: unspecified Qualified Code(s): D72.829 - Elevated white blood cell count, unspecified (3) Hypertension Hypertension type: unspecified Qualified Code(s): I10 - Essential (primary) hypertension
[2021-08-11 23:48] LABS: Amphetamines+Metham, Urine Neg (Neg); Barbiturates, Urine Neg (Neg); Benzodiazepine, Urine Neg (Neg); Cocaine, Urine Neg (Neg); MDMA (Ecstacy), Urine Neg (Neg); Methadone, Urine Neg (Neg); Opiate, Urine Neg (Neg); Phencyclidine, Urine Neg (Neg)
[2021-08-12] MEDS: LACTATED RINGER'S 1,000 ML IV SCH ×2 (00:10→12:43)
[2021-08-12] MEDS ORDERED: XYLOCAINE 1%/SOD BICARB 20 ML VIAL INFIL ONE (00:12)
[2021-08-12 00:16] LABS: Lyme Ab IgG w/WB Rflx Negative (Negative)
[2021-08-12] MEDS ORDERED: PHARMACIST DISCHARGE MED REC CONSULT PRN (00:26)
[2021-08-12 00:31] LABS: Lyme Ab IgM w/WB Rflx Equivocal (Negative)
[2021-08-12] MEDS ORDERED: GLUCAGON FOR INJ 1 MG VIAL SQ PRN (00:44)
[2021-08-12] MEDS ORDERED: GLUCOSE 10 TABS/TUBE PO PRN (00:44)
[2021-08-12] MEDS ORDERED: DEXTROSE 50% 50 ML SYRINGE IV PRN (00:44)
[2021-08-12] MEDS ORDERED: GLUCOSE 40% GEL 15 GM TUBE PO PRN (00:44)
[2021-08-12] MEDS ORDERED: CARBOHYDRATES FOR HYPOGLYCEMIA PO PRN (00:44)
[2021-08-12] MEDS ORDERED: INSULIN ASPART PER UNIT SC SCH (01:00)
[2021-08-12 01:27] LABS: Total Protein CSF 69.7 mg/dl (15-45)
[2021-08-12 01:43] LABS: Appearance CSF Clear; CSF Count Tube # 3; CSF Xanthrochromic No xanthochromia; Color CSF Colorless; Red Blood Cell CSF (A) 0 /uL (0-); White Blood Cell CSF (A) 0 /uL (0-5)
[2021-08-12 02:32] LABS: Cryptococcus neoformans/ga PCR Not Detected (NotDetected); Cytomegalovirus PCR Not Detected (NotDetected); Enterovirus PCR Not Detected (NotDetected); Escherichia coli K1 PCR Not Detected (NotDetected); Haemophilius influenzae PCR Not Detected (NotDetected); Herpes Simplex Virus 1 PCR Not Detected (NotDetected); Herpes Simplex Virus 2 PCR Not Detected (NotDetected); Human Herpes Virus 6 PCR Not Detected (NotDetected); Human Parechovirus PCR Not Detected (NotDetected); Listeria monocytogenes PCR Not Detected (NotDetected); Neisseria meningitidis PCR Not Detected (NotDetected); Streptococcus agalactiae PCR Not Detected (NotDetected); Streptococcus pneumoniae PCR Not Detected (NotDetected); Varicella Zoster Virus PCR Not Detected (NotDetected)
[2021-08-12] MEDS ORDERED: ACETAMINOPHEN 325 MG TAB PO PRN (02:42)
[2021-08-12] MEDS ORDERED: ACETAMINOPHEN 325 MG TAB ONE (02:46)
[2021-08-12] MEDS ORDERED: PANTOprazole 40 MG TAB PO SCH (06:30)
--- NOTE | 2021-08-12 06:45 | CT Scan Report ---
UNENHANCED CT OF THE BRAIN; CT ANGIOGRAM OF THE BRAIN; CT ANGIOGRAM OF THE NECK CLINICAL HISTORY: Change in mental status. COMPARISON STUDY: CT of the brain dated 04/29/2021. TECHNIQUE: Unenhanced axial CT scan of the brain is performed. Subsequently, following the IV adminis tration of 121 of [address] 320, CT angiogram of the head and neck was performed from the aortic arch t o the vertex. Images are reviewed in the axial, sagittal, and coronal planes. 3-D MIPS images are cre ated and assessed. IV contrast was administered without complication. All measurements were calculate d based on NASCET criteria. A dose lowering technique was utilized adhering to the principles of ALA RA. CT DOSE: 1293.50 mGy.cm FINDINGS: Brain parenchyma: There is age-related involutional change noting minimal microangiopathic disease. T here is no hemorrhage, mass effect, or evidence of acute territorial ischemia by CT criteria. There i s no evidence of enhancing mass lesion on the angiogram phase images. The ventricles, sulci, and cist erns are prominent secondary to involutional change. Wilkerson-white matter differentiation is preserved. No extra-axial fluid collection is seen. Thoracic aorta: Visualized portions of the thoracic aorta are normal in caliber. The aortic arch demo nstrates standard 3-vessel anatomy. Right carotid arterial system: The right common carotid artery is widely patent, as are the right int ernal and external carotid arteries. Left carotid arterial system: The left common carotid artery is widely patent, as are the left international exchange coordinator al and external carotid arteries. Vertebral arteries: The right vertebral artery is dominant and widely patent. There is complete occlu dionna at the origin of the left vertebral artery. There is trace reconstitution of flow in the mid nec k at the level of C5-C6. There is only thready flow in the vessel, which is again occluded below the skull base. Subclavian arteries: Widely patent bilaterally. Intracranial vasculature: The [place] is developmentally complete. There is atherosclerotic calcification of the cavernous carotid arteries. The internal carotid arteries are patent at the skul l base, as are the anterior and middle cerebral arteries bilaterally. The left vertebral artery is oc cluded at the skull base. The right vertebral vertebral artery is dominant and widely patent, as is t he basilar artery. There is reconstitution of the distal left vertebral artery via retrograde flow. N o aneurysm or foci of high-grade stenosis are seen throughout the intracranial circulation. Jugular veins: Patent bilaterally. Dural sinuses: Patent. Lung apices: Partially visualized upper lobe lung parenchyma appears clear. Soft tissues: The visualized pharyngeal soft tissues are normal in appearance noting angiographic pha se technique. The oropharyngeal airway appears widely patent. The salivary and thyroid glands are nor mal in appearance. No cervical lymphadenopathy is seen. Skeletal structures: The skeletal structures are osteopenic. The calvarium appears intact. The cervic al spine is maintained in the mild multilevel spondylosis. No lytic or blastic lesion is seen. Orbits: The bony orbits are intact. Orbital contents are normal as visualized. Sinuses and mastoids: There is mild mucosal thickening within the maxillary antra noting a 2.9 cm ret ention cyst on the left. Mild to moderate mucosal thickening is present in the ethmoid sinuses. There is trace mucosal thickening in the sphenoid sinuses. The mastoid air cells are well pneumatized. IMPRESSION: 1. There is no hemorrhage, mass effect, or evidence of acute territorial ischemia by CT criteria. 2. 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 This is reconstituted in the mid neck with thready flow and again occluded below the skull base. There is minimal flow in the distal left vertebral artery just below the basilar artery via retrograde flow. This is of indetermin ant acuity and may be chronic. Underlying dissection would be impossible to exclude. 3. Otherwise unremarkable CT angiograms of the head and neck. ACT 112: Negative or not required by law. Electronically signed by: Raman Townsend M.D. 08/12/2021 6:44 AM
[2021-08-12 06:50] LABS: Basophils # (auto) 0.01 K/uL (0-0.2); Basophils % (auto) 0.1 %; Eosinophils # (auto) 0.02 K/uL (0-0.5); Eosinophils % (auto) 0.1 %; Hematocrit (blood only) 39.4 % (42-52); Immature Granulocytes # (auto) 0.03 K/uL (0.00-0.02); Immature Granulocytes % (auto) 0.2 %; Lymphocytes # (auto) 1.69 K/uL (1.2-3.4); Lymphocytes % (auto) 12.2 %; Mean Corpuscular Hemoglobin 29.4 pg (25-34); Mean Corpuscular Hgb Conc 35.5 g/dL (32-36); Mean Corpuscular Volume 82.8 fL (80-100); Mean Platelet Volume 11.1 fL (7.4-10.4); Monocytes # (auto) 1.08 K/uL (0.11-0.59); Monocytes % (auto) 7.8 %; Neutrophils # (auto) 11.07 K/uL (1.4-6.5); Neutrophils % (auto) 79.6 %; Platelet Count 281 K/uL (130-400); RDW Coefficient of Variation 12.4 % (11.5-14.5); RDW Standard Deviation 37.4 fL (36.4-46.3); Red Blood Count 4.76 M/uL (4.7-6.1)
[2021-08-12 07:05] LABS: Albumin Globulin Ratio 1.5 (0.9-2); Albumin Level 4.1 gm/dl (3.4-5.0); Calcium 9.2 mg/dl (8.5-10.1); Chol HDL Ratio 3.8 (0-5); Creatinine Clr Calc Pharmacy 71.3 ml/min; Est GFR (African American) 77.9 ml/min; Est GFR (Non-African American) 67.2 ml/min; Globulin 2.8 gm/dl (2.5-4.0); Magnesium 1.9 mg/dl (1.7-2.4); Potassium 3.7 mmol/L (3.5-5.1); Total Protein 6.9 gm/dl (6.0-8.3)
[2021-08-12 07:08] LABS: Estimated Average Glucose 146 mg/dl; Hemoglobin A1C 6.7 % (4.5-5.6)
--- NOTE | 2021-08-12 07:16 | Magnetic Resonance Report ---
MRI OF THE BRAIN WITHOUT IV CONTRAST CLINICAL HISTORY: Change in mental status. COMPARISON STUDY: CT and CT angiogram of the brain dated 08/11/2021. TECHNIQUE: MRI of the brain was performed utilizing various T1 and T2-weighted sequences in the axial , sagittal, and coronal planes. IV contrast was not administered for this examination. FINDINGS: Brain parenchyma: There is age-related involutional change noting minimal subcortical and periventric ular microangiopathic disease. There is no hemorrhage or mass effect. There is no restricted diffusio n to suggest acute ischemia. Wilkerson-white matter differentiation is preserved. No extra-axial fluid col lection is seen. The cerebellar tonsils are normal in configuration. Ventricles, sulci, and cisterns: Prominent secondary to involutional change. Pituitary and sella: Partially empty sella is incidentally noted. Intracranial vasculature: Loss of the left vertebral artery flow-void at the skull base is again note d. The remaining flow voids at the skull base are patent. Orbits: The bony orbits are grossly intact. Orbital contents are normal in appearance. Sinuses and mastoids: There is mild mucosal thickening within the maxillary antra noting a 2.8 cm ret ention cyst in the left. Mild to moderate mucosal thickening is also seen in the ethmoid sinuses. The re is trace mucosal thickening in the frontal and sphenoid sinuses. The mastoid air cells are clear. Calvarium: Unremarkable. Cervical cord: Partially visualized cervical spinal cord is normal in morphology and signal intensity . IMPRESSION: 1. No acute intracranial abnormality. 2. There is loss of the left vertebral artery flow-void at the skull base. This was better assessed o n today's CT angiogram of the head and neck. ACT 112: Negative or not required by law. Electronically signed by: Raman Townsend M.D. 08/12/2021 7:15 AM
--- NOTE | 2021-08-12 07:25 | XRay Report ---
XR chest 1V portable CLINICAL HISTORY: weakness. COMPARISON STUDY: Chest radiograph April 29, 2021. FINDINGS: Lung volumes are normal. No consolidation is present. 1.5 cm circumscribed right lower lung nodule is unchanged since radiograph of June 07, 2019 There is no pneumothorax or pleural effusion. Cardiac size is normal. Mediastinal contours are normal. There is no evidence for pulmonary edema. IMPRESSION: 1. No acute cardiopulmonary findings. 2. 1.5 cm right lower lung nodule. This is pathologically indeterminate but unchanged since radiograp h of June 07, 2019. ACT 112: Negative or not required by law. Electronically signed by: Adalberto Sahy M.D. 08/12/2021 7:23 AM
--- NOTE | 2021-08-12 08:23 | Hospitalist Progress Note ---
Date of Service August 12, 2021 Assessment & Plan (1) Acute confusion: Plan: Parker Gorman is a 71yo male with PMHx significant for HTN, HLD, T2DM and GERD who presented to [facility] ED on 08/11 for acute-onset confusion and amnesia for the last several hours, with reported fever/chills/weakness/malaise for several days. Acute Confusion/Amnesia Unclear etiology at this point in time. When considering the recent episodes of anxiety/palpitations/diaphoresis in the context of a life stressor (loss of ozqllm-xe-fmv), with acute-onset amnesia earlier this evening, transient global amnesia is certainly on the differential. However per CTA head/neck here, the patient has occlusion of left vertebral artery which makes acute CVA a possibility as well. 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 - CT head and CTA head/neck without evidence for CVA - ordered MRI w/o contrast for further evaluation - ordered TTE - ordered EEG as well per [facility] Telestroke recs - consulted Neurology - appreciate recs - s/p Aspirin 324mg x1 in ED - continue with 81mg PO daily started in AM - ordered lipid profile - will plan to increase home Atorvastatin to 40mg vs 80mg pending results of this - permissive HTN given concern for CVA - will hold home anti-hypertensives for now - NPO pending dysphagia screen - infectious work-up as mentioned below Fever; Meningismus; Leukocytosis Fever/chills and generalized weakness/malaise for several days. Thankfully afebrile and hemodynamically stable in the ED although with meningismus (+ jolt accentuation) and leukocytosis with neutrophilic predominance and left shift. 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 - Lyme IgG negative but IgM equivocal - Western blot pending - blood cx taken - pending - LP performed by ED physician, with reported clear CSF - will defer on steroids and abx until LP cell counts result, as patient is currently afebrile, hemodynamically stable, and appears non-toxic - s/p 1L NSS bolus - will continue with light IV hydration: LR @80cc/hr - trend CBC and CMP in AM Chronic Medical Problems: HTN: hold home Amlodipine, Losartan-HCTZ, Metoprolol as stated above T2DM: unknown previous A1c, will order one now. Hold home Metformin, SSI while hospitalized GERD: Pantoprazole PTSD: chronic, no medications. Recommend therapy as outpatient - per PCP FEN/GI: CARLOSO LR @80cc/hr DVT Prophylaxis: Lovenox Code Status: full code Disposition: med/tele (2) Vertebral artery obstruction: (3) Leukocytosis: (4) Hypertension: (5) Hyperlipidemia: (6) Non-insulin dependent diabetes mellitus: Admission and Anticipated Discharge Date Admission Date: August 11, 2021 Review of Systems Constitutional: as per Subjective / HPI Results & Data Results & Data ([place]) Vital Signs (Past 12 Hours) Vital Signs Temp Pulse Pulse Resp BP BP Pulse Ox 08/12/21 07:43 36.8 C 75 18 149/68 H 95 08/12/21 07:42 82 08/12/21 03:59 74 08/12/21 03:29 36.7 C 76 20 170/83 H 97 08/12/21 00:26 94 08/11/21 23:10 78 20 92 08/11/21 23:00 80 21 154/82 H 98 08/11/21 22:50 77 18 97 08/11/21 22:40 81 18 98 08/11/21 22:30 82 24 148/81 H 97 08/11/21 22:22 77 17 142/82 H 97 08/11/21 22:20 81 20 99 08/11/21 22:10 89 28 H 100 08/11/21 22:09 78 21 99 08/11/21 20:56 98 08/11/21 20:39 36.3 C L 81 16 173/95 H 99 Resident Activity Tracking Resident Involvement: Resident Care Provided Care Provided: Adult Hospital Medicine (1) Vertebral artery obstruction Laterality: left Qualified Code(s): I65.02 - Occlusion and stenosis of left vertebral artery (2) Leukocytosis Leukocytosis type: unspecified Qualified Code(s): D72.829 - Elevated white blood cell count, unspecified (3) Hypertension Hypertension type: unspecified Qualified Code(s): I10 - Essential (primary) hypertension
[2021-08-12] MEDS: INSULIN ASPART PER UNIT SC SCH ×3 (08:46→17:32)
[2021-08-12] MEDS ORDERED: LOSARTAN/HCTZ 50/12.5MG TAB PO SCH (09:00)
[2021-08-12] MEDS ORDERED: ENOXAPARIN INJ 40 MG/0.4 ML SYR SQ SCH (09:00)
[2021-08-12] MEDS ORDERED: amLODIPine BESYLATE 5 MG TAB PO SCH (09:00)
[2021-08-12] MEDS ORDERED: METOPROLOL TARTRATE 25 MG TAB PO SCH (09:00)
[2021-08-12] MEDS ORDERED: ASPIRIN 81 MG ECTAB PO SCH (09:00)
--- NOTE | 2021-08-12 09:10 | XCELERA ---
[id number]
--- NOTE | 2021-08-12 09:24 | Neurology Consultation ---
Date of Consultation August 12, 2021 Assessment & Plan (1) Transient global amnesia: (2) Vertebral artery obstruction: Transient global amnesia, clinically resolved this morning. Patient will have some residual amnesia for yesterday's events going forward. Prognosis for TGA is favorable with low risk for recurrence. Recent psychological stressor, of [id number] may have been a triggering factor in this case. Patient's clinical presentation not consistent with stroke or seizure. 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 I agree with the addition of aspirin 81 mg/day. Patient's atorvastatin dosage could be increased as his LDL is greater than 100. Will consider obtaining a follow-up CTA or MRA of the head and neck in 3 to 6 months to assess for stability of the left vertebral occlusion given the possibility of underlying dissection. Follow-up with EEG which should be completed later today. Patient may follow-up with me or one of our [facility] in neurology clinic in 2 to 3 weeks after discharge. History of Present Illness Reason for Consultation: amnesia, vert occlusion Requesting Physician: Jann Rhodes MD Attending Physician: Kim Shaw MD History of Present Illness The patient is a 71-year-old male with a chief complaint of amnesia. He presented to the emergency department yesterday evening for further assessment of confusion and mild agitation. He had been repeating the same question over and over according to his spouse. His [id number] had just . No reported loss of consciousness or seizure activity. No reported strokelike symptoms. The patient remains amnestic for yesterday's events. His symptoms have resolved, however, this morning. Allergies Allergy/AdvReac Type Severity Reaction Status Date / Time No Known Allergies Allergy Verified 08/11/21 21:23 Home Medications Medication Instructions Recorded Confirmed Type atorvastatin 40 mg tablet 20 mg PO HS 06/07/19 08/11/21 History losartan 100 1 tab PO QAM 06/07/19 08/11/21 History mg-hydrochlorothiazide 25 mg tablet metformin 500 mg tablet,extended 500 mg PO QAM 06/07/19 08/11/21 History release 24 hr pantoprazole 40 mg tablet,delayed 40 mg PO DAILYBB 06/07/19 08/11/21 History release sildenafil 100 mg tablet 100 mg PO DAILY PRN 06/07/19 08/11/21 History amlodipine 5 mg tablet 5 mg PO DAILY 08/11/21 08/11/21 History metoprolol tartrate 25 mg tablet 12.5 mg PO BID 08/11/21 08/11/21 History Patient History Medical History (Updated 08/12/21 @ 09:32 by Arsenio Bates MD) Hyperlipidemia Hypertension Non-insulin dependent diabetes mellitus Social History Smoking Status: Never smoker Do You Dip or Chew Tobacco: No; Hx Alcohol Use: No Hx Substance Use: Yes Preferred Language: Thai Communication Ability: Effective Healthcare Project Manager Required: No Beliefs That Will Affect Care: None Current Living Situation: Spouse and Family Current Living Situation Comment: lives at home and son Other Information That Helps Us Care for You: No Feels Safe at Home: Yes Safety Concerns: Feels Safe At This Time Assistive Devices: None Review of Systems Constitutional: no fever and no chills Eyes: no blind spots and no diplopia Ear, Nose, Mouth, Throat: no ear pain and no hearing loss Respiratory: no cough and no dyspnea Cardiovascular: no chest pain and no palpitations Gastrointestinal: no constipation and no diarrhea/loose stools Genitourinary: no urinary incontinence or no urinary urgency Musculoskeletal: no muscle weakness and no muscle atrophy Integumentary: no rash and no lesions Neurologic: as per Subjective / HPI, + confusion and + memory loss; no gait abnormality, no unsteadiness, no localized weakness, no loss of sensation, no lack of coordination, no tremor(s), no seizure-like activity and no syncope Psychiatric: no depression and no anxiety Hematologic / Lymphatic: no easy bruising and no lymphadenopathy Exam (Neuro) Constitutional: well developed and well nourished; no acute distress Eyes: normal visual grove by confrontation, PERRL, normal accommodation and EOM intact bilaterally; no fundoscopic abnormality, no nystagmus and no papilledema Cardiovascular: Vessels: normal carotid upstroke; no carotid bruit Neurologic: Oriented to:: Person, Place and Time Memory: Short Term Intact and Remote Intact Attention: Span Intact and Concentration Intact Language: Naming Objects and Repeating Phrases Speech Fluency: negative Dysarthria Speech Aphasia: negative Aphasia Fund of Knowledge: Current Events, Past History and Vocabulary Cranial Nerves: Normal II (Visual grove full to confrontation, visual acuity normal), III, IV, (Pupils equal round reactive to light and accommodation, eye movements normal), V (Facial sensation intact), VII (There is no facial droop or weakness), VIII (Hearing intact), IX, X (Palate elevates to midline), XI (Shoulder shrug intact) and XII (Tongue protrudes to midline) Motor Strength: Normal Lower Extremities and Normal Upper Extremities; negative Pronator Drift Motor Tone: Normal Lower Extremities and Normal Upper Extremities Muscle Bulk/Involuntary Movements: No Involuntary Movements; negative Muscle Atrophy Sensation: Light Touch Intact, Pain/Temperature Intact, Vibration Intact and Proprioception Intact Coordination: Normal; negative Limited Balance, Dysdiadochokinesia, Finger-Nose Abnormal or Heel-Chau Abnormal Deep Tendon Reflexes: Rt Triceps: 2+, Lt Triceps: 2+, Rt Biceps: 2+, Lt Biceps: 2+, Rt Brachioradialis: 2+, Lt Brachioradialis: 2+, Rt Patellar: 2+, Lt Patellar: 2+, Rt Ankle: 2+ and Lt Ankle: 2+ Special Tests: negative Babinski Present Gait: Normal Station and Gait Results & Data ([facility]) Vital Signs (Past 12 Hours) Vital Signs Temp Pulse Pulse Resp BP BP Pulse Ox 08/12/21 07:43 36.8 C 75 18 149/68 H 95 08/12/21 07:42 82 08/12/21 03:59 74 08/12/21 03:29 36.7 C 76 20 170/83 H 97 08/12/21 00:26 94 08/11/21 23:10 78 20 92 08/11/21 23:00 80 21 154/82 H 98 08/11/21 22:50 77 18 97 08/11/21 22:40 81 18 98 08/11/21 22:30 82 24 148/81 H 97 08/11/21 22:22 77 17 142/82 H 97 08/11/21 22:20 81 20 99 08/11/21 22:10 89 28 H 100 08/11/21 22:09 78 21 99 Laboratory Results WBC 13.90, hemoglobin 14.0, hematocrit 39.4, platelet count 281, sodium 136, potassium 3.7, BUN 22, creatinine 1.10, glucose 137, magnesium 1.9, AST 15, ALT 23, ammonia 28, triglycerides 72, cholesterol 164, LDL 107, VLDL 14, HDL 43, TSH 3.083. Lumbar puncture completed as well. CSF clear, colorless, no xanthochromia, CSF WBC 0, RBC 0, CSF glucose 95, protein 69.7, CSF meningoencephalitis bio fire panel negative. Diagnostic Findings CT angiography of the head and neck negative for hemorrhage or acute process. There was complete thrombosis of the origin of the left vertebral artery with reconstitution in the mid neck and again occluded below the skull base. There is minimal flow in the distal left vertebral artery just below the basilar artery via retrograde flow. This finding is of indeterminate acuity and may be chronic. Underlying dissection impossible to exclude. Otherwise unremarkable CTA of the head and neck. MRI of the brain negative for acute abnormality. Loss of the left vertebral artery flow void appreciated at the skull base. I reviewed the images as well as the radiologist interpretation of these tests and was able to appreciate the above findings. Transthoracic echocardiogram was negative for interatrial shunt. Normal left ventricular systolic function. Normal left atrial size. Electrocardiogram revealed sinus bradycardia, 47 bpm. Coding Level of Care Code 54077 Initial Inpt Care Lvl 3 Diagnoses Transient global amnesia G45.4 Vertebral artery obstruction I65.02 Laterality: left (1) Vertebral artery obstruction Laterality: left Qualified Code(s): I65.02 - Occlusion and stenosis of left vertebral artery
[2021-08-12] MEDS ORDERED: LORazepam 2 MG/1 ML VIAL IV STA (10:42)
[2021-08-12] MEDS ORDERED: LORazepam 0.5 MG TAB PO STA (10:53)
--- NOTE | 2021-08-12 16:10 | Electrocardiogram Report ---
Test Reason : Blood Pressure : / mmHG Vent. Rate : 091 BPM Atrial Rate : 091 BPM P-R Int : 158 ms QRS Dur : 108 ms QT Int : 374 ms P-R-T Axes : 057 -15 046 degrees QTc Int : 460 ms Normal sinus rhythm ST depression in Anterior leads , consider ischemia Prolonged QT Abnormal ECG When compared with ECG of 29-APR-2021 09:17, Vent. rate has increased BY [address] depression in Indeterminate axis now present Confirmed by Valentin Urias ([id number]) on 08/12/2021 4:10:33 PM Referred By: REFERRED SELF Confirmed By:Valentin Urias
--- NOTE | 2021-08-12 16:56 | Electroencephalogram ---
EEG Procedure Note Date of Service August 12, 2021 Start / End Times Start Time: 1 PM End Time: 1:20 PM Referring Physician Jann Rhodes MD History Transient global amnesia evaluate for seizure activity Home Medication List Medication Instructions Recorded Confirmed Type atorvastatin 40 mg tablet 20 mg PO HS 06/07/19 08/11/21 History losartan 100 1 tab PO QAM 06/07/19 08/11/21 History mg-hydrochlorothiazide 25 mg tablet metformin 500 mg tablet,extended 500 mg PO QAM 06/07/19 08/11/21 History release 24 hr pantoprazole 40 mg tablet,delayed 40 mg PO DAILYBB 06/07/19 08/11/21 History release sildenafil 100 mg tablet 100 mg PO DAILY PRN 06/07/19 08/11/21 History amlodipine 5 mg tablet 5 mg PO DAILY 08/11/21 08/11/21 History metoprolol tartrate 25 mg tablet 12.5 mg PO BID 08/11/21 08/11/21 History lorazepam 0.5 mg tablet 0.5 mg PO DAILY PRN #5 tab 08/12/21 Rx Inpatient Medication List Aspirin (Aspirin 81 Mg Ectab) [facility] Stop: 09/11/21 08:59 Last Admin: 08/12/21 09:19 Dose: 81 mg Documented by: [id number] Enoxaparin Sodium (Enoxaparin Inj 40 Mg/0.4 Ml Syr) 40 mg SQ Q24H [facility] Stop: 09/11/21 08:59 Last Admin: 08/12/21 08:46 Dose: 40 mg Documented by: [id number] Lactated Ringer's (Lr) 1,000 mls @ 80 mls/hr IV .[id number] [facility] Stop: 09/10/21 23:54 Last Admin: 08/12/21 12:43 Dose: 80 mls/hr Documented by: [id number] Infusion: 08/12/21 12:40 Dose: 80 mls/hr Documented by: [id number] Admin: 08/12/21 00:10 Dose: 80 mls/hr Documented by: [id number] Insulin Aspart (Insulin Aspart Per Unit) 0 units SC ACHS [facility] Stop: 09/11/21 07:29 Last Admin: 08/12/21 12:24 Dose: 1 units Documented by: [id number] Cosigned by: [id number] Admin: 08/12/21 08:46 Dose: 1 units Documented by: [id number] Cosigned by: [id number] Pantoprazole Sodium (Pantoprazole 40 Mg Tab) 40 mg PO DAILYBB [facility] Stop: 09/11/21 06:29 Last Admin: 08/12/21 05:58 Dose: 40 mg Documented by: [id number] Discontinued Medications Acetaminophen (Acetaminophen 325 Mg Tab) Confirm Administered Dose 650 mg .ROUTE .STK-MED ONE Stop: 08/12/21 02:47 Last Admin: 08/12/21 02:52 Dose: 650 mg Documented by: [id number] Aspirin (Aspirin Chew 324 Mg) 324 mg PO NOW STA Stop: 08/11/21 22:14 Last Admin: 08/11/21 22:53 Dose: 324 mg Documented by: [id number] Sodium Chloride (Nss 1000ml) 1,000 mls @ 999 mls/hr IV .Q1H1M ONE Stop: 08/11/21 21:54 Last Infusion: 08/11/21 22:47 Dose: 0 mls/hr Documented by: [id number] Admin: 08/11/21 21:45 Dose: 999 mls/hr Documented by: [id number] Insulin Aspart (Insulin Aspart Per Unit) 0 units SC Q6 [facility] Stop: 09/11/21 00:59 Last Admin: 08/12/21 01:38 Dose: 1 units Documented by: [id number] Cosigned by: [id number] Ioversol (Optiray 320 125ml) 121 ml IV ONCE ONE Stop: 08/11/21 21:09 Last Admin: 08/11/21 21:09 Dose: 121 ml Documented by: [id number] Lidocaine HCl (Xylocaine 1%/Sod Bicarb 20 Ml Vial) 20 ml INFIL NOW ONE Stop: 08/12/21 00:13 Last Admin: 08/12/21 00:22 Dose: 20 ml Documented by: [id number] Lorazepam (Lorazepam 2 Mg/1 Ml Vial) Confirm Administered Dose 2 mg .ROUTE .STK- MED ONE Stop: 08/11/21 20:55 Last Admin: 08/11/21 21:47 Dose: Not Given Documented by: [id number] Lorazepam (Lorazepam 2 Mg/1 Ml Vial) 0.5 mg IV NOW STA; Protocol Stop: 08/11/21 20:55 Last Admin: 08/11/21 21:45 Dose: 0.5 mg Documented by: [id number] Lorazepam (Lorazepam 0.5 Mg Tab) 0.5 mg PO NOW STA Stop: 08/12/21 10:54 Last Admin: 08/12/21 11:38 Dose: 0.5 mg Documented by: [id number] Ondansetron HCl (Ondansetron Inj 2 Mg/Ml 2 Ml Vial) Confirm Administered Dose 4 mg .ROUTE .STK-MED ONE Stop: 08/11/21 20:55 Last Admin: 08/11/21 21:45 Dose: 4 mg Documented by: [id number] Ondansetron HCl (Ondansetron Inj 2 Mg/Ml 2 Ml Vial) 4 mg IV NOW STA Stop: 08/11/21 20:55 Last Admin: 08/11/21 21:47 Dose: Not Given Documented by: [id number] Description This is a 21 electrode EEG with a single channel dedicated to limited EKG. The electrodes were placed in accordance with the International 10-20 system. There is a posterior dominant rhythm of 10 Hz which is symmetrically distributed and attenuates with eye opening. There is a normal anterior to posterior organization. Photic stimulation is unremarkable. Hyperventilation is not performed. There is a symmetric frontal beta rhythm. There is a minimal degree of admixed polymorphic generalized theta activity in the latter part of the study. There is intermittent movement artifact. There is no focal slowing. There are no epileptiform abnormalities. Interpretation Normal-appearing awake/drowsy EEG. A normal EEG does not completely exclude a diagnosis of epilepsy. Further clinical correlation may be needed. [facility] EEG Procedure Codes Indication for Procedure (1) Transient global amnesia: (2) Acute confusion: Neurology Neurology: [id number] EEG include record awake & drowsy
--- NOTE | 2021-08-12 18:23 | Discharge Summary ---
Date of Service August 12, 2021 Admission HPI Per Admitting Provider Parker Gorman is a 71yo male with PMHx significant for HTN, HLD, T2DM and GERD who presented to [facility] ED on 08/11 for acute-onset confusion and amnesia for the last several hours. The patient's history has been obtained with assistance of the patient's , as the patient reports being "fuzzy" on all events that have occurred in the past week. Per the patient and his 's testimony, the patient had an anxiety episode yesterday that thought may have been a panic attack; he became sweaty with palpitations, which resolved in less than an hour. Of note the patient's vqhwzk-rd-lww had recently . Today the patient had two similar episodes except with associated nausea and with amnesia - he reported that he did not know his son and that he did not remember that his tbxiyr-id-npp had recently . Per patient and his , he did not have speech deficits, facial droop or focal weakness/numbness/tingling. Patient and his do report that he has had intermittent fever/chills, unmeasured, for the last several days, with associated generalized weakness and lethargy. He spends a lot of time in his garden and reports that he recently had two bug bites on his arms and pulled out the "pincer" from one of the bite sites earlier today, although unsure if this was a tick. Patient has otherwise been at baseline health status without cough, runny nose, chest pain, SOB, N/V, abdominal pain, diarrhea or rash. Patient reports that he has been diagnosed with PTSD in the past although never on medications, due to his service in [place]. Reports that he regularly had hypersensitivity to certain sounds and smells ~30 years ago, with associated palpitations/sweating/anxiety, but this went away. Then he started having the same episodes again ~3-4 weeks ago which lasted for several days and went away. Unlike above symptoms, these symptoms did not coincide with a life stressor or illness. Patient is a never smoker, does not drink. He does use medical marijuana for peripheral neuropathy but no other drugs. In the ED the patient was hypertensive to 173/95 but otherwise hemodynamically stable on room air. Labs significant for WBC 13.1 (neutrophilic predominance and mild L shift), HCO3 21, AG 14, no ALEXEI. BSG was 201. Tbili 1.4. TSH 3.083. UA concentrated with trace ketones. UDS negative and BAL negative. CT head without acute process. 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 Stroke alert was called and [facility] recommended patient be given full Aspirin, which he received in the ED. Patient also received 1L NSS bolus, Zofran x1, and Ativan 0.5mg IV x1. Principal Diagnosis Transient Global Amnesia Discharge Exam Constitutional WD/WN, vitals as above Eyes PERRL, conjunctivae normal, anicteric sclerae Respiratory normal respiratory effort, lungs clear to auscultation Cardiovascular RRR, no murmur, no edema Gastrointestinal (Abdomen) normal bowel sounds, soft, nontender, no hepatosplenomegaly Skin no rashes, warm and dry Psychiatric A+Ox3, euthymic affect Discharge Data Allergies Allergy/AdvReac Type Severity Reaction Status Date / Time No Known Allergies Allergy Verified 08/11/21 21:23 Consultations 08/11/21 22:13 ED Decision to Admit Stat 08/11/21 23:56 Consult Neurology Routine Ordered Studies 08/11/21 20:54 CT angio head w con Urgent IMPRESSION: 1. There is no hemorrhage, mass effect, or evidence of acute territorial ischemia by CT criteria. 2. 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 This is reconstituted in the mid neck with thready flow and again occluded below the skull base. There is minimal flow in the distal left vertebral artery just below the basilar artery via retrograde flow. This is of indeterminant acuity and may be chronic. Underlying dissection would be impossible to exclude. 3. Otherwise unremarkable CT angiograms of the head and neck. CT angio neck with con Urgent CT head/brain wo con Urgent CXR IMPRESSION: 1. No acute cardiopulmonary findings. 2. 1.5 cm right lower lung nodule. This is pathologically indeterminate but unchanged since radiograph of June 07, 2019. 08/12/21 00:06 MR brain wo con Routine IMPRESSION: 1. No acute intracranial abnormality. 2. There is loss of the left vertebral artery flow-void at the skull base. This was better assessed on today's CT angiogram of the head and neck. Hospital Course (1) Acute confusion: Parker Gorman is a 71yo male with PMHx significant for HTN, HLD, T2DM and GERD who presented to [facility] ED on 08/11 for acute-onset confusion and amnesia for the last several hours, with reported fever/chills/weakness/malaise for several days. Acute Confusion/Amnesia Unclear etiology at this point in time. When considering the recent episodes of anxiety/palpitations/diaphoresis in the context of a life stressor (loss of aobbwy-ug-nhd), with acute-onset amnesia earlier this evening, transient global amnesia is certainly on the differential. Additionally, there is concern for [employer] infection given recent fever/chills/weakness/malaise as well as mild leukocytosis and positive jolt accentuation test on exam. - CT head and CTA head/neck without evidence for CVA - MRA/MRI - Loss of left vertebral artery flow. - TTE w/ normal EF 65-70%, unremarkable otherwise. - Normal EEG - consulted Neurology -Transient global amnesia, clinically resolved. -Clinical presentation not consistent with stroke or seizure. -Incidental occlusion L vertebral artery likely 2/2 high cholesterol, HTN, DM. -Agree w/ ASA 81mg daily. -F/u w/ neurology [facility] clinic in 2-3 weeks. -Consider f/u CTA or MRA H&N in 3-6 months for stability of L vertebral artery (possibility of underlying dissection). - s/p Aspirin 324mg x1 in ED - Continue ASA 81mg daily started in hospital as well as home statin. Fever; Meningismus; Leukocytosis Fever/chills and generalized weakness/malaise for several days. Thankfully afebrile and hemodynamically stable in the ED although with meningismus (+ jolt accentuation) and leukocytosis with neutrophilic predominance and left shift. Given acute amnesia/confusion, this is concerning for [employer] infection. - Lyme IgG negative but IgM equivocal - Western blot pending - blood cx taken - pending - LP performed by ED physician, with reported clear CSF. CSF w/ 0 WBC and RBCs, glucose 95, protein 69 PTSD: -chronic, no medications. Recommend therapy as outpatient - per PCP (2) Vertebral artery obstruction: (3) Leukocytosis: (4) Hypertension: (5) Hyperlipidemia: (6) Non-insulin dependent diabetes mellitus: Total Time Total Time Spent Total Time Spent (In Minutes): Pleas see attending attestation Discharge Plan Discharge Items Patient Disposition: Home - Self-Care Reason For Visit: AMNESIA/CONFUSIO, STROKE W/U Discharge Diagnosis: Transient Global Amnesia Condition on Discharge: Fair Activity: Per Instructions section Non-emergency contact: Primary Care Provider and Neurologist Call non-emergency contact if: your symptoms worsen, your pain is worsening and your temperature is above 101 Follow-up/Referrals: Lillian Hallman PA-C [Physician [employer]enting [employer] Operator] - 09/02/21 2:30 pm (Follow up with [facility]. Lillian is a CARLA, who works with Dr. Bates.) PCP,NO [Physician] - Diet: Regular Addtl Attending Provider Instructions: A discharge summary will be sent to your primary care physician to ensure continuity of care. You came into the hospital for new onset of memory loss for the past few days. During your hospital stay here you received an MRI which showed an occlusion of the left vertebral artery, however this was determined to be chronic and incidental (not related to your symptoms). You were seen by the neurologist during your stay who determined your presentation was not consistent with stroke or seizure. You most likely experienced something called Transient Global Amnesia. Your echocardiogram appeared normal on evaluation with good output and the electroencephalogram (EEG) appeared normal. At this time it is okay to follow up outpatient for further discussion and workup of your condition. Please be mindful of any worsening of symptoms or symptoms concerning for stroke that should prompt you to call your PCP or neurologist office or 911. These symptoms include loss of ability to speak, focal or one sided weakness, new onset numbness or tingling on one or both sides of your body, or facial drooping. Please exercise precaution until you have your follow up visit with neurology in 2-3 weeks. Please go without operating any heavy machinery at home or at work until you meet with your PCP or neurologist. Please ensure to the best of your ability you have someone with you at most times in case you forget where you are and need assistance for re-orientation. Follow-up: * You should be seen by your primary physician within the next week. * You should follow up with the neurologist office in 2-3 weeks for hospital follow up. L Medications: Your medication list has been reviewed and reconciled upon discharge to ensure accuracy and continuity of care. An updated list of all your medications is included with your hospital discharge paperwork. Please review this list closely, and make note of any changes. * Please continue to take a baby aspirin 81mg every day until you get to your PCP appointment. * You were given a few doses of Ativan 0.5mg for your anxiety to go home with to take as needed for your anxiety. * Please refrain from taking your Metformin until 48 hours after your MRI/brain scan. Take your medications as instructed; do not skip a dose of your medicines. Make sure all of your doctors know every medicine you are taking (including vtcf-ctn-ijjajqt medicines, vitamins, and supplements). let your primary care provider know before taking any new medicines because some of these may interact with your current medications, or may make your symptoms worse. CONTACT YOUR PRIMARY CARE PROVIDER if you experience any of the following: * Fevers or shaking chills * Shortness of breath not relieved by inhalers, fainting * Sudden abdominal distension not relieved by catheterization. * Difficulty following your treatment plan, or difficulty taking medications CALL 911 OR GO TO THE EMERGENCY DEPARTMENT if you experience any of the following: * Sudden, severe abdominal pain or nausea/vomiting * Severe chest pain, or chest pain that radiates (moves) to your jaw or arm * Sudden, severe shortness of breath or difficulty breathing L It was was our pleasure taking care of you here at [facility] . Thank you for allowing us to participate in your care. Pending Studies at Discharge: No Stand-Alone Forms: My [facility], Smoking Cessation Medications and DC Order Prescriptions: New lorazepam 0.5 mg tablet 0.5 mg PO DAILY PRN (Reason: anxiety) Qty: 5 RF: 0 aspirin 81 mg tablet,delayed release (DR/EC) 81 mg PO DAILY Qty: 14 RF: 0 Continued atorvastatin 40 mg Tablet 20 mg PO HS RF: 0 sildenafil 100 mg Tablet 100 mg PO DAILY PRN (Reason: Erectile Dysfunction) RF: 0 losartan-hydrochlorothiazide 100-25 mg Tablet 1 tab PO QAM RF: 0 pantoprazole 40 mg Tablet,Delayed Release (Dr/Ec) 40 mg PO DAILYBB RF: 0 metformin 500 mg Tablet Extended Release 24 Hr 500 mg PO QAM RF: 0 amlodipine 5 mg Tablet 5 mg PO DAILY RF: 0 metoprolol tartrate 25 mg Tablet 12.5 mg PO BID RF: 0 Discharge Orders: Discharge Order (Routine); Ordered 08/12/21 Ordered By: Bijan Marmolejo/Other Patient Handouts: Managing Type 2 Diabetes, Special Foot Care for Diabetes Admission Data Admit Date/Time: 08/11/21 23:51 Attending Provider: Kim Shaw Admit Provider: Jann Rhodes Primary Care Provider: Tyshawn Lopez Other Providers: Arlene Diaz ; Arsenio Bates ; [facility] Other Interventions: Discharge Summary Assessment (RN) Last Done: 08/12/21 17:49 Supervising Physician Co-Signing Physician Notes Resident Physician Supervision Note: I independently interviewed and examined the patient and verified the jimenez history and physical, reviewed labs and image studies and agree with resident Dr. Gramajo findings and care plan. Resident Activity Tracking Resident Involvement: Resident Care Provided Care Provided: Adult Hospital Medicine
[2021-08-12] MEDS ORDERED: ATORVASTATIN 20 MG TAB PO SCH (21:00)
--- NOTE | 2021-08-13 01:36 | Billing Data ---
Date of Service August 12, 2021 Coding Level of Care Code 33339 Initial Inpt Care Lvl 2
[2021-08-14 15:06] LABS: Marijuana Quant, GCMS Urine 699 ng/mL (<5)
[2021-08-16 13:22] LABS: 18KDIGG Band REACTIVE; 23KDIGG Band NON-REACTIVE; 23KDIGM Band NON-REACTIVE; 28KDIGG Band NON-REACTIVE; 30KDIGG Band NON-REACTIVE; 39KDIGG Band NON-REACTIVE; 39KDIGM Band NON-REACTIVE; 41KDIGG Band REACTIVE; 41KDIGM Band NON-REACTIVE; 45KDIGG Band NON-REACTIVE; 58KDIGG Band NON-REACTIVE; 66KDIGG Band NON-REACTIVE; 93KDIGG Band NON-REACTIVE; Lyme Antibodies, WB IgG NEGATIVE (NEGATIVE); Lyme Antibodies, WB IgM NEGATIVE (NEGATIVE)
== END 2021-08-12 18:11 | disposition home or self-care (01) | DRG 71 ==
LOC: ED 20:28 → SUATTDRO 23:51 → EDINP 23:51 → 2N 08-12 02:59